=== PATIENT | female | born 1980 | race Caucasian/White ===

== ENCOUNTER 2016-12-13 18:26 | Emergency (ER) | payer OTHER | END 2016-12-13 20:41 | disposition hospice, home (50) | LOC: SED 18:26 | DX: S01.81XA Laceration without foreign body of other part of head, initial encounter (principal); T15.01XA Foreign body in cornea, right eye, initial encounter; F17.200 Nicotine dependence, unspecified, uncomplicated; Z88.5 Allergy status to narcotic agent; Z23 Encounter for immunization; W25.XXXA Contact with sharp glass, initial encounter; W45.8XXA Other foreign body or object entering through skin, initial encounter | CPT/HCPCS: 12011; 90471; 90715; 99283; 99285 ==